=== PATIENT | male | born 1975 | race Caucasian/White ===

== ENCOUNTER 2020-08-26 18:01 | Inpatient (IN) | payer OTHER ==
[~2020-08-26] VITALS: Ht 172.7 cm; Wt 136.1 kg
[2020-08-26 20:03] LABS: HEMOGLOBIN 13.7 gm/dl (14.0-17.5); RED BLOOD COUNT 4.9 M/UL (4.20-5.50); WHITE BLOOD COUNT 7.3 K/UL (4.5-11.0)
[2020-08-26 20:10] LABS: BUN/CREATININE RATIO 23 (0-10)
[2020-08-27] MEDS ORDERED: GABAPENTIN300 MG PO (00:47)
[2020-08-27] MEDS ORDERED: HYDROCHLOROTH12.5 MG PO (00:48)
[2020-08-27] MEDS ORDERED: HYDROCODON-ACE1 EAC4 PO (00:49)
[2020-08-27] MEDS ORDERED: GLUCOPHAGE 500500 MG PO (00:50)
[2020-08-27] MEDS ORDERED: VENTOLIN HFA 66.7 GM INH (00:51)
[2020-08-27] MEDS ORDERED: LISINOPRIL10 MG PO (00:51)
[2020-08-27] MEDS ORDERED: LANTUS SOL100 UNIT/1 SQ (00:52)
[2020-08-28 04:42] LABS: BUN/CREATININE RATIO 19 (0-10)
[2020-08-28] MEDS ORDERED: LANTUS SOL100 UNIT/1 SQ (16:41)
[2020-08-28] MEDS ORDERED: GLUCOPHAGE850 MG PO (16:41)
[2020-08-28] MEDS ORDERED: LISINOPRIL20 MG PO (16:41)
== END 2020-08-28 17:23 | disposition home or self-care (01) | DRG 554 ==
LOC: ER1 18:01 → CDU 21:18 → M/S 21:18
PROVIDERS: Family Medicine; ADMIT Internal Medicine
DX: M14.671 Charcot's joint, right ankle and foot (principal); E87.2 Acidosis; I10 Essential (primary) hypertension; E11.65 Type 2 diabetes mellitus with hyperglycemia; J45.909 Unspecified asthma, uncomplicated; E66.9 Obesity, unspecified; G62.9 Polyneuropathy, unspecified; Z20.822 Contact with and (suspected) exposure to COVID-19; Z90.49 Acquired absence of other specified parts of digestive tract; Z68.30 Body mass index [BMI] 30.0-30.9, adult
CPT/HCPCS: 36415; 73630; 73700; 80048; 80053; 80202; 82962; 83605; 85025; 85610; 86140; 93926; 96374; 99285; G0378; J1335; J1650; J2185; J2270; J3370; J7030; J7060; J7070; U0002